=== PATIENT | female | born 1995 | race Caucasian/White ===

== ENCOUNTER 2018-05-14 16:55 | Inpatient (IN) ==
[2018-05-14 18:24] LABS: Baso % (Auto) 0.3 % (0.0-2.0); Eos % (Auto) 0.2 % (0.0-4.0); Hematocrit 40.1 % (35.0-46.0); Hemoglobin 14.1 gm/dL (11.6-15.3); Lymph # (Auto) 1.8 th/mm3 (1.0-4.8); Lymph % (Auto) 17.9 % (9.0-44.0); Mean Corpuscular HGB Conc 35.2 % (32.0-36.0); Mean Corpuscular Hemoglobin 33.8 pg (27.0-34.0); Mean Corpuscular Volume 96.1 fL (80.0-100.0); Mono # (Auto) 0.8 th/mm3 (0.0-0.9); Neut # (Auto) 7.3 th/mm3 (1.8-7.7); Neut % (Auto) 73.6 % (16.0-70.0); Platelet Count 169 th/mm3 (150-450); Red Blood Count 4.17 mil/mm3 (4.00-5.30); Red Cell Distribution Width 13.1 % (11.6-17.2); White Blood Count 9.9 th/mm3 (4.0-11.0)
[2018-05-14] MEDS ORDERED: Sodium Chlor 0.9% Inj 500 ML IV.SIG PRN (18:25)
[2018-05-14] MEDS ORDERED: Sod Chloride 0.9% Inj 1,000 ML IV.CONT PRN (18:25)
[2018-05-14] MEDS ORDERED: Oxytocin 30 Units/500ml Premix 30 UNITS/500 ML BAG IV.SIG ONE (18:25)
[2018-05-14] MEDS ORDERED: Penicillin G Potassium Inj 5,000,000 UNIT in Sodium Chloride 0.9% Inj 100 ML IV.SIG ONE (18:25)
[2018-05-14] MEDS ORDERED: Naloxone Inj 0.4 MG/ML Vial IV.PUSH PRN (18:25)
[2018-05-14] MEDS ORDERED: fentaNYL Citrate Inj 100 MCG/2 ML Ampul IV.PUSH PRN (18:25)
[2018-05-14 18:27] LABS: Bacteria,Urine Few /hpf; Bilirubin,Urine Negative (Negative); Clarity,Urine Clear (Clear); Color,Urine Straw (Yellw/Straw); Glucose,Urine (UA) Negative (Negative); Leukocyte Esterase,Urine Negative (Negative); Mucus,Urine Few /lpf (Occasional); Nitrite,Urine Negative (Negative); Specific Gravity,Urine 1.008 (1.002-1.035); Squamous Epithelial Cell,Urine <1 /hpf (0-5)
[2018-05-14] MEDS ORDERED: Citric Acid/Sodium Citrate Liq 30 ML UDC PO SCH (18:30)
[2018-05-14 18:36] LABS: Amphetamine Urine With Conf Neg (Neg); Benzodiazepine Urine With Conf Neg (Neg); Cocaine Urine With Conf Neg (Neg); Opiates Urine With Conf Neg (Neg)
[2018-05-14 18:41] LABS: Cannabinoid Urine With Conf Neg (Neg)
--- NOTE | 2018-05-14 21:41 | MH ---
cc: Олег Richards MD DATE OF ADMISSION: 05/14/2018 ADMITTING DIAGNOSIS: Term . HISTORY OF PRESENT ILLNESS: The patient is a 23-year-old, , white female, para 0-0-2-0, with a LMP of 08/13/2017, EDC of 05/13/2018. Early ultrasound was consistent with an EDC of 05/21/2018. Her course has been benign. She is now at term and requests delivery. MEDICATIONS: 1. Vitamins. 2. Levothyroxine. ALLERGIES: BACTRIM, SEVERE AND REQUIRED PLATELETS. PAST SURGICAL HISTORY: Breast augmentation. PAST MEDICAL HISTORY: She is hypothyroid with Alfredo's. SOCIAL HISTORY: She is . She is an RN at [employer]. Alcohol, tobacco and drugs are none. FAMILY HISTORY: Noncontributory. PHYSICAL EXAMINATION: GENERAL: Reveals a well-nourished, well-developed white female. VITAL SIGNS: Stable. Height is 5 feet 3 inches. HEENT: Normal. CHEST: Clear. HEART: Regular rate. BREASTS: Symmetrical. ABDOMEN: Gravid. EFW of 3500 grams. PELVIC: Cervix is fingertip, thick, vertex intact. EXTREMITIES: Normal. ASSESSMENT: As above. PLAN: She is now admitted for induction of labor. The risks of the induction, failed induction and possible need for were explained and accepted. The patient prefers delivery now as opposed to awaiting spontaneous labor or more favorable induction. The risks, benefits and complications explained and accepted. She is GBS positive and will receive antibiotics in labor. MD CARLOTTA Cobos/muriel , 09:18 PM , 09:24 PM
[2018-05-15] MEDS: fentaNYL Citrate Inj 100 MCG/2 ML Ampul IV.PUSH PRN ×3 (00:03→03:56)
[2018-05-15] MEDS ORDERED: Sodium Chloride 0.9% 2 ML Flush PRN IV.FLUSH (00:26)
[2018-05-15] MEDS: Penicillin G Potassium Inj 2,500,000 UNIT in Sodium Chlor 0.9% Inj 100 ML IV.SIG SCH ×5 (01:00→16:44)
[2018-05-15] MEDS ORDERED: Oxytocin 30 Units/500ml Premix 30 UNITS/500 ML BAG IV.SIG PRN ×2 (05:54→22:42)
[2018-05-15] MEDS ORDERED: Levothyroxine 75 MCG Tablet PO SCH (07:00)
[2018-05-15] MEDS ORDERED: fentaNYL 2MCG-Bupiv 0.125% Epi 150 ML EPIDURAL ONE (08:32)
[2018-05-15] MEDS ORDERED: Sodium Chloride 0.9% 2 ML Flush BID IV.FLUSH SCH (09:00)
[2018-05-15] MEDS ORDERED: fentaNYL 2MCG-Bupiv 0.125% Epi 150 ML EPIDURAL PRN (10:02)
[2018-05-15] MEDS ORDERED: Ketorolac Inj 30 MG/ML (IVP) Vial IV.PUSH PRN (10:02)
[2018-05-15] MEDS ORDERED: fentaNYL Citrate Inj 100 MCG/2 ML Ampul EPIDURAL ONE (10:02)
[2018-05-15] MEDS ORDERED: Lidocaine PF 1% Inj 5 ML Vial ONE (10:10)
[2018-05-15] MEDS ORDERED: Sodium Chlor 0.9% Inj 10 ML ONE (10:11)
[2018-05-15] MEDS ORDERED: Bupivacaine/Epinephrine PF Inj 0.25% 10 ML Vial ONE (10:11)
[2018-05-15] MEDS ORDERED: Penicillin G Potassium Inj 2,500,000 UNIT in Sodium Chlor 0.9% Inj 100 ML IV.SIG SCH (17:00)
[2018-05-15] MEDS ORDERED: Oxytocin 30 Units/500ml Premix 30 UNITS/500 ML BAG IV.SIG ONE (17:42)
[2018-05-15] MEDS ORDERED: Morphine Sulfate PF Inj 5 MG/10 ML Ampul ONE (17:48)
[2018-05-15] MEDS ORDERED: ceFAZolin 2 GM Premix Inj 2 GM/50 ML PIGGYBACK IV.SIG PRN (17:49)
[2018-05-15] MEDS ORDERED: Citric Acid/Sodium Citrate Liq 30 ML UDC PO SCH (18:00)
[2018-05-15] MEDS ORDERED: Naloxone Inj 0.4 MG/ML Vial IV.PUSH PRN (19:00)
[2018-05-15] MEDS ORDERED: Oxytocin 30 Units/500ml Premix 30 UNITS/500 ML BAG ONE (20:05)
--- NOTE | 2018-05-15 20:56 | MP ---
cc: Олег Richards MD DATE OF OPERATION: 05/15/2018 PREOPERATIVE DIAGNOSES: 1. Term . 2. Failure to progress, occiput posterior. POSTOPERATIVE DIAGNOSES: 1. Term . 2. Failure to progress, occiput posterior. 3. Delivered. PROCEDURE PERFORMED: Primary low transverse section. ANESTHESIA: Epidural. SURGEON: Олег Richards MD ESTIMATED BLOOD LOSS: About 600 mL. FLUIDS: 1.6 liters crystalloid. OBJECTIVE FINDINGS: Following induction of adequate epidural anesthesia, the patient was prepped and draped supine on the operating table in left lateral tilt position in usual sterile fashion. The bladder was drained. Khalil catheterization. The abdomen was opened through a Pfannenstiel incision using a knife to cut down through the skin to the fascia. The fascia opened transversely, stripped from the muscles, rectus muscle split in the midline and the peritoneum opened sharply without incident. The bladder flap was taken down sharply and retracted inferior with the [place] blade. The lower uterine segment was incised transversely with a knife, extended with blunt dissection. There was clear fluid. Baby was in the OP position and was rotated and gently delivered with fundal pressure, coin wrapping machine operator guidance. Mouth was suctioned. The cord clamped and cut. Nuchal cord x 1. Cord blood for typing, set up for donation, and uterine cavity cleaned with laps. Uterus was exteriorized and closed with a running suture, first with a running locking stitch of 0 Vicryl, second with a running imbricating stitch of 0 Vicryl. The posterior inspection uterus, tubes, ovaries normal. The uterus was replaced in the cavity. Irrigation performed. No bleeding was evident. Bladder flap was closed with a running stitch of 3-0 Vicryl. All laps and retractors were removed. Counts were correct. The anterior peritoneum closed with running 2-0 Vicryl, the fascia with a running locking stitch with 0 Vicryl to midline and tied. Subcutaneous closed with 3-0 Vicryl, and the skin with a running subcuticular 3-0 Monocryl. Dermabond applied. All counts were correct. The patient was awakened and taken to the recovery room in good condition. MD CARLOTTA Cobos/samantha , 06:52 PM , 06:57 PM
[2018-05-15] MEDS ORDERED: Zolpidem Tartrate 5 MG Tablet PO PRN ×2 (21:00)
[2018-05-16 06:23] LABS: Baso % (Auto) 0.1 % (0.0-2.0); Hematocrit 28.5 % (35.0-46.0); Hemoglobin 9.9 gm/dL (11.6-15.3); Lymph # (Auto) 1.6 th/mm3 (1.0-4.8); Lymph % (Auto) 12.7 % (9.0-44.0); Mean Corpuscular HGB Conc 34.7 % (32.0-36.0); Mean Corpuscular Hemoglobin 33.6 pg (27.0-34.0); Mean Corpuscular Volume 96.9 fL (80.0-100.0); Mean Platelet Volume 9.4 fL (7.0-11.0); Mono # (Auto) 0.7 th/mm3 (0.0-0.9); Mono % (Auto) 5.3 % (0.0-8.0); Neut # (Auto) 10.6 th/mm3 (1.8-7.7); Neut % (Auto) 81.9 % (16.0-70.0); Platelet Count 132 th/mm3 (150-450); Red Blood Count 2.94 mil/mm3 (4.00-5.30); Red Cell Distribution Width 12.9 % (11.6-17.2); White Blood Count 12.9 th/mm3 (4.0-11.0)
[2018-05-16] MEDS: Levothyroxine 75 MCG Tablet PO SCH (06:23)
[2018-05-16] MEDS: Senna/Docusate Sodium 8.6/50 MG Tablet PO PRN (12:50)
[2018-05-16] MEDS ORDERED: Measles/Mumps/Rubella Vaccine Inj 0.5 ML Vial SQ ONE (16:00)
[2018-05-16] MEDS ORDERED: Diphtheria/Tetanus/Pertussis Vaccine Inj 0.5 ML Syringe IM ONE (16:00)
[2018-05-17] MEDS: Senna/Docusate Sodium 8.6/50 MG Tablet PO PRN (00:46)
[2018-05-17] MEDS: Simethicone 80 MG Chew Tablet PO PRN ×2 (03:18→11:10)
[2018-05-17] MEDS: Levothyroxine 75 MCG Tablet PO SCH (07:14)
--- NOTE | 2018-05-17 12:50 | MD ---
cc: Олег Richards MD DATE OF DISCHARGE: ADMITTING DIAGNOSIS: Term . DISCHARGE DIAGNOSES: Term , failure to progress, delivered. PROCEDURES: Induction of labor followed by primary low transverse section on 05/15/2018. HISTORY OF PRESENT ILLNESS: The patient is a 23-year-old white female, para 0-0-2-0 with an LMP of 08/05/2017, EDC of 05/13/2017 by dates, 05/21/2018 by early ultrasound. course was benign. Had normal Panorama testing, normal first TM screen. At term, she desired delivery and was admitted for Cervidil on the night of 05/03/2018. She was switched to Pitocin the next day and failed to progress beyond 4 cm with posterior presentation. She underwent a primary low transverse section on 05/15/2018 and deliver of a live, vigorous male, Apgars were 9 and 9, weight 7 pounds 7 ounces OP position. Baby's name is Mg and just . did well. Discharged home in excellent condition on 05/17/2018. She was advised NPV, light activity, no driving, return to see 1 week. She is carefully instructed in wound instructions and care. She will take her vitamins, iron pills and Synthroid medications at home. She was given a prescription for Percocet 5 mg 1 p.o. every 4 hours p.r.n. pain #18. Олег Richards MD JAW/es , 10:43 AM , 10:48 AM
== END 2018-05-17 13:02 | disposition home or self-care (01) ==
LOC: H2E 16:55 → H1EA 05-15 20:40
PROVIDERS: ADMIT Obstetrics & Gynecology; ATTEND Obstetrics & Gynecology